=== PATIENT | female | born 1965 | race Caucasian/White ===

== ENCOUNTER 2016-08-06 20:13 | Emergency (ER) | payer MEDICARE ==
[~2016-08-06] VITALS: Ht 170.2 cm; Wt 120.0 kg
[2016-08-06 20:17] VITALS: BP 183/92; PULSE 97; RESP 16; TEMP 97.8; O2SAT 98
--- NOTE | 2016-08-06 20:54 | PD ---
HPI Chief Complaint: Psychiatric Symptoms Time Seen by Provider: 20:49 Travel History International Travel<30 days: No Contact w/Intl Traveler<30days: No Traveled to known affect area: No History of Present Illness HPI 50-year-old black female presents to emergency department requesting psychological evaluation. She states that she had just gotten off the bus from [place]. She was relocating to [place]. She states that her plans have fallen through and she has nowhere to go. She is currently homeless. She states that she has a history of mental illness and medical problems and would like to be admitted to the hospital for a few days. She states that this will help her get her mind straight and then she would like to be transferred to a [facility] for a place to stay. She states that she is disabled and only gets approximately thousand dollars a month. She has spent her money traveling. She has nowhere to go. She states that she has had thoughts of harming people although she has no current plan. She does not have anyone in particular that she wants to harm. No suicidal ideation. Patient states that she has been off her medications now for several weeks. She would like to get back on them. She has no friends or family in the area. PFSH Past Medical History Narrative Medical Schizoaffective disorder, bipolar, PTSD, hypertension, diabetes Tetanus Vaccination: < 5 Years ?: Unknown Past Surgical History Surgical History: No Previous Surgery Social History Alcohol Use: Yes Tobacco Use: Yes Substance Use: Yes Allergies-Medications (Allergen,Severity, Reaction): Coded Allergies: No Known Allergies (Unverified , 08/06/16) Reported Meds & Prescriptions Reported Meds & Active Scripts Active Reported Zyprexa (Olanzapine) 5 Mg Tab 5 Mg PO DAILY Depakote ER (Divalproex Sodium) 500 Mg Jocy 500 Mg PO DAILY Ativan (Lorazepam) 1 Mg Tab 1 Mg PO DAILY PRN Review of Systems Except as stated in HPI: all other systems reviewed are Neg Psychiatric: Positive: Substance Abuse, Homicidal Ideation, No: Anxiety, Depression, Suicidal Ideations, Disorder of Thought, Mood Disorder Physical Exam Narrative GENERAL: Well-nourished, well-developed patient. SKIN: Warm and dry. HEAD: Normocephalic and atraumatic. EYES: No scleral icterus. No injection or drainage. ENT: No nasal drainage noted. Mucous membranes pink. Airway patent. NECK: Supple, trachea midline. Moves head freely without obvious discomfort. CARDIOVASCULAR: Regular rate and rhythm without murmurs, gallops, or rubs. RESPIRATORY: Breath sounds equal bilaterally. No accessory muscle use. GASTROINTESTINAL: Abdomen soft, non-tender, nondistended. EXTREMITIES: No cyanosis or edema. BACK: Nontender without obvious deformity. No CVA tenderness. NEURO: Patient is alert and oriented. no sensorimotor deficits. Nonfocal. Normal speech. PSYCH: No delusions. No auditory or visual hallucinations. Data Data Last Documented VS Vital Signs Date Time Temp Pulse Resp B/P Pulse Ox O2 Delivery O2 Flow Rate FiO2 08/06/16 20:17 97.8 97 16 183/92 98 Room Air Orders Complete Blood Count With Diff (08/06/16 20:39) Comprehensive Metabolic Panel (08/06/16 20:39) Ed Urine Pregnancytest Poc (08/06/16 20:39) Psych Screen (08/06/16 20:39) Drug Screen, Random Urine (08/06/16 20:39) Alcohol (Ethanol) (08/06/16 20:39) Salicylates (Aspirin) (08/06/16 20:39) Tylenol (Acetaminophen) (08/06/16 20:39) Clonidine (Catapres) (08/06/16 21:30) Diet Regular Basic (08/07/16 Breakfast) Labs Laboratory Tests Test 08/06/16 08/06/16 20:50 22:36 White Blood Count 9.6 TH/MM3 Red Blood Count 4.71 MIL/MM3 Hemoglobin 12.1 GM/DL Hematocrit 37.8 % Mean Corpuscular Volume 80.3 FL Mean Corpuscular Hemoglobin 25.8 PG Mean Corpuscular Hemoglobin 32.1 % Concent Red Cell Distribution Width 14.6 % Platelet Count 303 TH/MM3 Mean Platelet Volume 8.0 FL Neutrophils (%) (Auto) 70.3 % Lymphocytes (%) (Auto) 21.2 % Monocytes (%) (Auto) 7.6 % Eosinophils (%) (Auto) 0.2 % Basophils (%) (Auto) 0.7 % Neutrophils # (Auto) 6.8 TH/MM3 Lymphocytes # (Auto) 2.0 TH/MM3 Monocytes # (Auto) 0.7 TH/MM3 Eosinophils # (Auto) 0.0 TH/MM3 Basophils # (Auto) 0.1 TH/MM3 CBC Comment DIFF FINAL Differential Comment Sodium Level 139 MEQ/L Potassium Level 4.0 MEQ/L Chloride Level 105 MEQ/L Carbon Dioxide Level 26.8 MEQ/L Anion Gap 7 MEQ/L Blood Urea Nitrogen 8 MG/DL Creatinine 0.94 MG/DL Estimat Glomerular Filtration 63 ML/MIN Rate Random Glucose 137 MG/DL Calcium Level 8.4 MG/DL Total Bilirubin 0.2 MG/DL Aspartate Amino Transf 14 U/L (AST/SGOT) Alanine Aminotransferase 22 U/L (ALT/SGPT) Alkaline Phosphatase 73 U/L Total Protein 6.9 GM/DL Albumin 3.3 GM/DL Salicylates Level LESS THAN 1.7 MG/DL Acetaminophen Level LESS THAN 2.0 MCG/ML Ethyl Alcohol Level LESS THAN 3 MG/DL Urine Opiates Screen NEG Urine Barbiturates Screen NEG Urine Amphetamines Screen NEG Urine Benzodiazepines Screen NEG Urine Cocaine Screen NEG Urine Cannabinoids Screen NEG MDM Medical Decision Making Medical Screen Exam Complete: Yes Emergency Medical Condition: Yes Medical Record Reviewed: Yes Interpretation(s) Laboratory Tests Test 08/06/16 08/06/16 20:50 22:36 White Blood Count 9.6 TH/MM3 Red Blood Count 4.71 MIL/MM3 Hemoglobin 12.1 GM/DL Hematocrit 37.8 % Mean Corpuscular Volume 80.3 FL Mean Corpuscular Hemoglobin 25.8 PG Mean Corpuscular Hemoglobin 32.1 % Concent Red Cell Distribution Width 14.6 % Platelet Count 303 TH/MM3 Mean Platelet Volume 8.0 FL Neutrophils (%) (Auto) 70.3 % Lymphocytes (%) (Auto) 21.2 % Monocytes (%) (Auto) 7.6 % Eosinophils (%) (Auto) 0.2 % Basophils (%) (Auto) 0.7 % Neutrophils # (Auto) 6.8 TH/MM3 Lymphocytes # (Auto) 2.0 TH/MM3 Monocytes # (Auto) 0.7 TH/MM3 Eosinophils # (Auto) 0.0 TH/MM3 Basophils # (Auto) 0.1 TH/MM3 CBC Comment DIFF FINAL Differential Comment Sodium Level 139 MEQ/L Potassium Level 4.0 MEQ/L Chloride Level 105 MEQ/L Carbon Dioxide Level 26.8 MEQ/L Anion Gap 7 MEQ/L Blood Urea Nitrogen 8 MG/DL Creatinine 0.94 MG/DL Estimat Glomerular Filtration 63 ML/MIN Rate Random Glucose 137 MG/DL Calcium Level 8.4 MG/DL Total Bilirubin 0.2 MG/DL Aspartate Amino Transf 14 U/L (AST/SGOT) Alanine Aminotransferase 22 U/L (ALT/SGPT) Alkaline Phosphatase 73 U/L Total Protein 6.9 GM/DL Albumin 3.3 GM/DL Salicylates Level LESS THAN 1.7 MG/DL Acetaminophen Level LESS THAN 2.0 MCG/ML Ethyl Alcohol Level LESS THAN 3 MG/DL Urine Opiates Screen NEG Urine Barbiturates Screen NEG Urine Amphetamines Screen NEG Urine Benzodiazepines Screen NEG Urine Cocaine Screen NEG Urine Cannabinoids Screen NEG Differential Diagnosis MDM: High Differential diagnoses: Schizophrenia, schizoaffective disorder, bipolar, anxiety, depression, adjustment reaction, mood disorder NOS, ODD, depressive disorder NOS, dementia, dementia with agitation, psychosis NOS, substance induced mood disorder, intermittent explosive disorder, Asperger syndrome, infection,electrolyte abnormality, malingering. Narrative Course Mental health screening discussed with the patient. Psychiatric screen ordered. I suspect that this is more malingering in attempts to obtain a domicile. The patient is given 0.2 mg of clonidine by mouth for hypertension. Bipolar, medical clearance Diagnosis Primary Impression: bipolar Additional Impression: Medical clearance for psychiatric admission Condition: Stable Ant Wayne Aug 06, 2016 20:54
[2016-08-06] MEDS ORDERED: ZYPR5TAB PO (20:55)
[2016-08-06] MEDS ORDERED: LORA-474 PO (20:55)
[2016-08-06] MEDS ORDERED: DEPA500T3 PO (20:55)
[2016-08-06 21:20] LABS: AUTOMATED NEUTROPHIL # 6.8 TH/MM3 (1.8-7.7); BASOPHIL # 0.1 TH/MM3 (0-0.2); BASOPHIL % 0.7 % (0.0-2.0); EOSINOPHIL % 0.2 % (0.0-4.0); HEMATOCRIT 37.8 % (35.0-46.0); HEMO FLAGS DIFF FINAL; LYMPH % 21.2 % (9.0-44.0); MEAN CELL VOLUME 80.3 FL (80.0-100.0); MEAN CORPUSCULAR HEMOGLOBIN 25.8 PG (27.0-34.0); MEAN CORPUSCULAR HGB CONC 32.1 % (32.0-36.0); MONO % 7.6 % (0.0-8.0); NEUT % 70.3 % (16.0-70.0); PLATELET COUNT 303 TH/MM3 (150-450); RED BLOOD COUNT 4.71 MIL/MM3 (4.00-5.30); RED CELL DISTRIBUTION WIDTH 14.6 % (11.6-17.2); WHITE BLOOD COUNT 9.6 TH/MM3 (4.0-11.0)
[2016-08-06] MEDS ORDERED: cloNIDine HCL 0.2 MG TAB PO ONE (21:30)
[2016-08-06 21:44] LABS: ANION GAP 7 MEQ/L (5-15)
[2016-08-06 22:11] LABS: ACETAMINOPHEN LESS THAN 2.0 MCG/ML (10.0-30.0); ALKALINE PHOSPHATASE 73 U/L (45-117); ALT (GPT) 22 U/L (10-53); AST (GOT) 14 U/L (15-37); BICARBONATE 26.8 MEQ/L (21.0-32.0); BLOOD UREA NITROGEN 8 MG/DL (7-18); CHLORIDE 105 MEQ/L (98-107); GLOMERULAR FILTRATION RATE 63 ML/MIN (>89); SODIUM (NA) 139 MEQ/L (136-145); TOTAL BILIRUBIN ADULT 0.2 MG/DL (0.2-1.0)
[2016-08-06 23:13] LABS: AMPHETAMINE, URINE NEG (NEG); BARBITURATES, URINE NEG (NEG); COCAINE, URINE NEG (NEG)
[2016-08-07 02:15] VITALS: BP 113/58; PULSE 63; RESP 16; O2SAT 97
== END 2016-08-07 10:31 | disposition home or self-care (01) ==
LOC: NEPD 20:13 → NEPJ 08-07 10:31
DX: F31.9 Bipolar disorder, unspecified (principal); I10 Essential (primary) hypertension; E11.9 Type 2 diabetes mellitus without complications; Z72.0 Tobacco use
CPT/HCPCS: 80053; 80307; 84703; 85025; 99284

== ENCOUNTER 2016-08-08 13:42 | Inpatient (IN) | payer MEDICARE ==
[~2016-08-08] VITALS: Ht 170.2 cm; Wt 119.1 kg
[~2016-08-08 13:42] MED LIST: DEPA500T3 PO; LORA-474 PO; ZYPR5TAB PO
[2016-08-08 13:59] VITALS: BP 142/69; PULSE 97; RESP 18; TEMP 99.2; O2SAT 96
--- NOTE | 2016-08-08 14:09 | PD ---
HPI Chief Complaint: General Weakness Time Seen by Provider: 13:55 Travel History International Travel<30 days: No Contact w/Intl Traveler<30days: No Traveled to known affect area: No History of Present Illness HPI 50-year-old female requesting psychiatric evaluation. Patient was seen in emergency room 2 days ago. Patient was requesting psych also on evaluation at that time. Patient states that she just came here from [place]. Patient states that she does not have a place to stay in [facility]. Patient states that she has history of mental illness and requesting admission to the psychiatric wolf. Patient states that she history of schizoaffective disorder, bipolar disorder, PTSD, hypertension and diabetes. Patient denies any alcohol or drug abuse. Patient was medically clear and was seen by psychiatric team yesterday. Patient was discharged with advised to follow with [facility]. Patient elected to come back to the ED today. Patient states that she has thoughts of hurting other people. PFSH Past Medical History Anxiety: Yes Immunizations Current: Yes Social History Alcohol Use: Yes Tobacco Use: Yes Substance Use: Yes Allergies-Medications (Allergen,Severity, Reaction): Coded Allergies: No Known Allergies (Unverified , 08/08/16) Reported Meds & Prescriptions Reported Meds & Active Scripts Active Reported Zyprexa (Olanzapine) 5 Mg Tab 5 Mg PO DAILY Depakote ER (Divalproex Sodium) 500 Mg Jocy 500 Mg PO DAILY Ativan (Lorazepam) 1 Mg Tab 1 Mg PO DAILY PRN Review of Systems General / Constitutional: No: Fever Eyes: No: Visual changes HENT: No: Headaches Cardiovascular: No: Chest Pain or Discomfort Respiratory: No: Shortness of Breath Gastrointestinal: No: Abdominal Pain Genitourinary: No: Dysuria Musculoskeletal: No: Pain Skin: No Rash Neurologic: No: Weakness Psychiatric: No: Depression Endocrine: No: Polydipsia Hematologic/Lymphatic: No: Easy Bruising Physical Exam Narrative GENERAL: Well-nourished, well-developed patient. SKIN: Focused skin assessment warm/dry. HEAD: Normocephalic. EYES: No scleral icterus. No injection or drainage. NECK: Supple, trachea midline. No JVD or lymphadenopathy. CARDIOVASCULAR: Regular rate and rhythm without murmurs, gallops, or rubs. RESPIRATORY: Breath sounds equal bilaterally. No accessory muscle use. GASTROINTESTINAL: Abdomen soft, non-tender, nondistended. MUSCULOSKELETAL: No cyanosis, or edema. BACK: Nontender without obvious deformity. No CVA tenderness. Neurologic exam normal. Data Data Last Documented VS Vital Signs Date Time Temp Pulse Resp B/P Pulse Ox O2 Delivery O2 Flow Rate FiO2 08/08/16 13:59 99.2 97 18 142/69 96 MDM Medical Decision Making Medical Screen Exam Complete: Yes Emergency Medical Condition: Yes Differential Diagnosis Differential diagnosis including schizoaffective disorder, bipolar disorder, PTSD, malingering, adjustment disorder. Narrative Course 50-year-old female requesting psychiatric evaluation. Patient states that she had thoughts of hurting other people. Patient has history of schizoaffective disorder, bipolar disorder, PTSD, hypertension and diabetes. Blood test done 2 days ago and no need to be repeated today. Patient will be waiting for psychiatric screener. Tk Saldaña MD Aug 08, 2016 14:09
--- NOTE | 2016-08-08 17:37 | PD ---
History of Present Illness Chief Complaint: General Weakness Time Seen by Provider: 15:15 Travel History International Travel<30 Days: No Contact w/Intl Traveler<30days: No Known affected area: No Legal Status Legal Status: Voluntary History of Present Illness: History of Present Illness HPI 50-year-old female with reported history of schizoaffective disorder, bipolar disorder, PTSD who presents to the hospital on a voluntary basis requesting a psychiatric evaluation. Patient was seen in emergency room 2 days ago and was also requesting a psychiatric evaluation. Patient states that she just came here from [place] on a bus and that she has ran out of money, is homeless, has not had her medication. is experiencing " hardship, agitation, having difficulty dealing with certain situations and responding with violent thoughts towards other people. S" She tells me these thoughts frighten her and she is asking God to help her not act out in a violent way. She reports she had thoughts of setting someone on the street on fire. She has been off her psychiatric medication for several weeks and that her medications include Zyprexa, Depakote and Ativan. The patient is alert, oriented female with fair hygiene. Her speech is fast and tangential. She is religiously preoccupied. Does not appear internally preoccupied. She denies suicidal ideation but admits to thoughts of harming people on the street with violent acts such as setting them on fire. She has not been sleeping since she has been on the streets. This is the patient's second visit to the ed. She denies any substance use although does report a hx of substance abuse in the past. I have endeavored to contact her contact center professional , Damari Maravilla at [phone] but unable to leave a message. PFS Past Medical History Anxiety: Yes Diabetes: Yes Patient Takes Glucophage: No Hypertension: Yes Musculoskeletal: Yes (DJD) Immunizations Current: Yes ?: Unknown LMP: end of june : 3 : 3 Psychiatric History Psychiatric History Hx Psychiatric Treatment: Patient has years of history of mental illness with several hospitalizations reports anxiety, depression, and occasional thoughts of homicidal ideation. History of Inpatient Treatment: Yes (Last hosp in April of 2016. ) Social History Hx Alcohol Use: Yes (rare ) Hx Tobacco Use: Yes (1 pack a day) Hx Substance Use: No Substance Use Type: Alcohol, Crack, Garth Dust-PCP, Prescription Medications, Heroin Hx of Substance Use Treatment: No Family Psychiatric History Unknown. Allergies-Medications (Allergen,Severity, Reaction): Coded Allergies: No Known Allergies (Unverified , 08/08/16) Reported Meds & Prescriptions Reported Meds & Active Scripts Active Reported Zyprexa (Olanzapine) 5 Mg Tab 5 Mg PO DAILY Depakote ER (Divalproex Sodium) 500 Mg Jocy 500 Mg PO DAILY Ativan (Lorazepam) 1 Mg Tab 1 Mg PO DAILY PRN Review of Systems Except as stated in HPI: all other systems reviewed are Neg Exam Alert: Yes [place]: Person (ox4) Mood: Calm Affect: Restricted Speech: Clear, Fast, Flight of Ideas Eye Contact: Indirect Memory Intact: Comment (no gross abnormality) Hallucinations: Other (negative ) Suicidal: Ideation (deneis any) Homicidal: Ideation (of setting people on the street on fire. ) Insight/Judgement Poor. Poor MDM Medical Decision Making Medical Record Reviewed: Yes Assessment/Plan 50 year old female with reported hx of schizoaffective disorder, bipolar type, PTSD who impulsively took a bus from [place] to [facility]. Patient at this time reporting that she has been out of her medication and is reporting increase in aggressive impulses with homicidal ideation. Since this patient is unknown to us, she ahs a reported psychiatric history and has been off her medication with no resources to get back on them .she will be placed under a BA in order to get her to [facility] for stabilization and continued treatment. Orders Psych Screen (08/08/16 14:02) Results Vital Signs Date Time Temp Pulse Resp B/P Pulse Ox O2 Delivery O2 Flow Rate FiO2 08/08/16 13:59 99.2 97 18 142/69 96 Diagnosis Primary Impression: Schizoaffective disorder, bipolar type Departure Forms: Tests/Procedures Patient Instructions: General Instructions Xena Guillen Aug 08, 2016 17:37
[2016-08-08] MEDS ORDERED: OLANZapine 10 MG TAB PO ONE (17:45)
[2016-08-08] MEDS: DIVALPROEX SODIUM E.R. 500 MG TAB PO SCH (18:36)
[2016-08-08 19:03] VITALS: BP 145/62; PULSE 99; RESP 18; O2SAT 97
[2016-08-09] VITALS: BP 110/55; PULSE 62; RESP 18; TEMP 97.6; O2SAT 95
[2016-08-09 07:12] VITALS: BP 125/60; PULSE 70; RESP 18; TEMP 97.6; O2SAT 95
[2016-08-09] MEDS: DIVALPROEX SODIUM E.R. 500 MG TAB PO SCH ×2 (08:55→08:56)
[2016-08-09 11:42] VITALS: BP 122/68; PULSE 68; RESP 18; O2SAT 96
[2016-08-09 15:28] VITALS: BP 136/65; PULSE 84; RESP 18; O2SAT 97
[2016-08-09] MEDS ORDERED: LORazepam 0.5 MG TAB PO PRN (16:45)
[2016-08-09] MEDS ORDERED: LORazepam 2 MG/ML VIAL IM PRN ×2 (16:45)
[2016-08-09] MEDS ORDERED: ALUMINUM/MAGNESIUM/SIMETH 30 ML CUP PO PRN (16:45)
[2016-08-09] MEDS ORDERED: ACETAMINOPHEN 325 MG TAB PO PRN (16:45)
[2016-08-09] MEDS ORDERED: LORazepam 1 MG TAB PO PRN (16:45)
[2016-08-09] MEDS ORDERED: MAGNESIUM HYDROXIDE SUSP 30 ML CUP PO PRN (16:45)
[2016-08-09] MEDS: OLANZapine 5 MG TAB PO SCH (16:45)
[2016-08-09 17:52] VITALS: BP 165/94; PULSE 78; RESP 18; TEMP 97.5; O2SAT 96
[2016-08-10 05:45] VITALS: BP 124/64; PULSE 58; RESP 17; TEMP 96.7
[2016-08-10] MEDS: REMOVE OLD PATCH T-DERMAL SCH (08:26)
[2016-08-10] MEDS: NICOTINE 21 MG/24 HR PATCH T-DERMAL SCH (08:26)
[2016-08-10] MEDS: OLANZapine 5 MG TAB PO SCH (08:26)
[2016-08-10] MEDS: DIVALPROEX SODIUM E.R. 500 MG TAB PO SCH (08:26)
[2016-08-10] MEDS ORDERED: MAGNESIUM HYDROXIDE SUSP 30 ML CUP PO PRN (10:15)
[2016-08-10] MEDS ORDERED: ALUMINUM/MAGNESIUM/SIMETH 30 ML CUP PO PRN (10:15)
[2016-08-10] MEDS ORDERED: NICOTINE 21 MG/24 HR PATCH T-DERMAL SCH (10:15)
[2016-08-10] MEDS ORDERED: ACETAMINOPHEN 325 MG TAB PO PRN (10:15)
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
--- NOTE | 2016-08-10 14:13 | PD.CONS ---
[facility] By Amanuel Reason for Consult Medical management Primary Care Physician Unknown Diagnoses: History of Present Illness Written by JOSE Oliveira acting as scribe for Dr. Malik] on 08/10/16 at 12 :25. 50 y/o female with a history of bipolar, schizoaffective disorder and questionable history of DM, HTN, and degenerative joint disease came to the hospital because she felt she was going to harm others. [facility] was consulted for medical management. She is homeless and came to [place] one week ago from [place]. She has not taken any medications for DM for over a year, but states she use to be on insulin. She also has not taken any medications for HTN since 2009, but states she was on metoprolol. She does take Depakote for bipolar and says she takes it every other day because it makes her sleepy. She does complain of bilateral shoulder discomfort and is requesting a muscle relaxer. She does complain of UTI chronic for the last 2-3 months with associated abdominal discomfort with urination, but denies any dysuria. She also denies any chest pain, sob, fever or chills. Review of Systems Constitutional: DENIES: Fever, Chills Respiratory: DENIES: Cough, Shortness of breath Cardiovascular: DENIES: Chest pain, Lower Extremity Edema Gastrointestinal: COMPLAINS OF: Abdominal pain, DENIES: Diarrhea, Nausea, Vomiting Genitourinary: DENIES: Dysuria Musculoskeletal: COMPLAINS OF: Joint pain, DENIES: Back pain, Neck pain Neurologic: DENIES: Headache, Localized weakness Past Family Social History Allergies: Coded Allergies: No Known Allergies (Unverified , 08/08/16) Past Medical History bipolar schizoaffective disorder questionable history of DM, HTN, and degenerative joint disease Past Surgical History Patient denies any surgical history Reported Medications Reported Meds & Active Scripts Active Reported Zyprexa (Olanzapine) 5 Mg Tab 5 Mg PO DAILY Depakote ER (Divalproex Sodium) 500 Mg Jocy 500 Mg PO DAILY Ativan (Lorazepam) 1 Mg Tab 1 Mg PO DAILY PRN Active Ordered Medications Current Medications Medications (Trade) Dose Ordered Sig/Michael Route Start Time Stop Time Status Last Admin (Depakote Er) 500 mg DAILY PO 08/08/16 17:45 08/10/16 08:26 (Tylenol) 650 mg Q4H PRN PO 08/09/16 16:45 (Milk Of Magnesia Liq) 30 ml DAILY PRN PO 08/09/16 16:45 (Mag-Al Plus Susp Liq) 30 ml Q6H PRN PO 08/09/16 16:45 (Habitrol 21 Mg Patch.24 Hr) 1 patch DAILY T-DERMAL 08/10/16 09:00 08/10/16 08:26 (ZyPREXA) 5 mg DAILY PO 08/09/16 16:45 08/10/16 08:26 Miscellaneous Information 1 DAILY T-DERMAL 08/10/16 09:00 08/10/16 08:26 (Benadryl) 50 mg HS PRN PO 08/10/16 10:15 (Atarax) 50 mg Q6H PRN PO 08/10/16 10:15 Family History Patient is adopted Social History Tobacco use: 1 PPD Alcohol use: Denies Illicit drug use: Denies Physical Exam Vital Signs Vital Signs Date Time Temp Pulse Resp B/P Pulse Ox O2 Delivery O2 Flow Rate FiO2 08/10/16 05:45 96.7 58 17 124/64 08/09/16 17:52 97.5 78 18 165/94 96 08/09/16 15:28 84 18 136/65 97 Room Air Physical Exam GENERAL: This is a well-nourished, well-developed patient, in no apparent distress. SKIN: No rashes, ecchymoses or lesions. Cool and dry. HEAD: Atraumatic. Normocephalic. No temporal or scalp tenderness. EYES: Pupils equal round and reactive. Extraocular motions intact NECK: Trachea midline. No JVD or lymphadenopathy. CARDIOVASCULAR: Regular rate and rhythm without murmurs, gallops, or rubs. RESPIRATORY: Clear to auscultation. Breath sounds equal bilaterally. No wheezes , rales, or rhonchi. GASTROINTESTINAL: Abdomen soft, non-tender, nondistended. . MUSCULOSKELETAL: No edema. Sb shouder tenderness. No calf tenderness. NEUROLOGICAL: Awake and alert. Motor and sensory grossly within normal limits. Normal speech. Assessment and Plan Problem List: (1) Schizoaffective disorder, bipolar type ICD Code: F25.0 Status: Acute (2) HTN (hypertension) ICD Code: I10 Status: Acute (3) DM (diabetes mellitus) ICD Code: E11.9 Status: Acute (4) Degenerative joint disease ICD Code: M19.90 Status: Chronic Assessment and Plan 50 y/o female with a history of bipolar, schizoaffective disorder and questionable history of DM, HTN, and degenerative joint disease came to the hospital because she felt she was going to harm others. [facility] was consulted for medical management. Schizoaffective disorder -Managed by psych HTN, questionable chronic, not on any medications, stable. Currently normotensive -Cont to monitor Vitals -Clonidine PRN DM, questionable, chronic, 1 year ago on insulin -A1C pending -Accu checks with SSI UTI: Patient reports a history of recurrent UTI. Currently asymptomatic - UA pending. DVT prophylaxis: Low risk. encourage ambulation This note was transcribed by scribe [Diann Escoto]. I, Dr. Yen Sanchez personally performed the history, physical exam, and medical decision making; and confirmed the accuracy of the information in the transcribed note. Authenticated by Dr. Yen Sanchez on 08/10/16 at 1230. Discussed Condition With Patient Problem Qualifiers (1) Degenerative joint disease: Qualified Code: M19.011 - Osteoarthritis of both shoulders, unspecified osteoarthritis type Diann Escoto Aug 10, 2016 14:13 Yen Sanchez MD Aug 10, 2016 18:27
[2016-08-10] MEDS ORDERED: PILL SPLITTER OTHER PRN (14:15)
[2016-08-10] MEDS ORDERED: CYCLOBENZAPRINE HCL 10 MG TAB PO PRN (14:15)
[2016-08-10 16:50] LABS: ANION GAP 9 MEQ/L (5-15); BICARBONATE 25.5 MEQ/L (21.0-32.0); BLOOD UREA NITROGEN 13 MG/DL (7-18); CHLORIDE 100 MEQ/L (98-107); GLOMERULAR FILTRATION RATE 78 ML/MIN (>89); POTASSIUM 3.8 MEQ/L (3.5-5.1); SODIUM (NA) 134 MEQ/L (136-145)
[2016-08-10 16:54] LABS: HDL CHOLESTEROL 39.6 MG/DL (40.0-60.0); LDL CHOLESTEROL 64 MG/DL (0-99)
[2016-08-10 18:24] VITALS: BP 160/104; PULSE 75; RESP 18; TEMP 97.4; O2SAT 95
[2016-08-10] MEDS: diphenhydrAMINE HCL 50 MG CAP PO PRN (20:07)
[2016-08-10 22:22] LABS: HEMOGLOBIN A1a 1.2 %; HEMOGLOBIN A1b 1.8 %; HEMOGLOBIN Ao 83.1 %; HEMOGLOBIN LA1C 2.2 %; HEMOGLOBIN P3 3.9 %
[2016-08-11 05:59] VITALS: BP 150/80; PULSE 64; RESP 16; TEMP 96.9; O2SAT 98
[2016-08-11] MEDS: NICOTINE 21 MG/24 HR PATCH T-DERMAL SCH ×2 (09:00→09:21)
[2016-08-11] MEDS: REMOVE OLD PATCH T-DERMAL SCH (09:00)
[2016-08-11] MEDS: DIVALPROEX SODIUM E.R. 500 MG TAB PO SCH (09:20)
[2016-08-11] MEDS: OLANZapine 5 MG TAB PO SCH (09:21)
[2016-08-11 11:25] LABS: ANION GAP 11 MEQ/L (5-15); AST (GOT) 9 U/L (15-37); BICARBONATE 23.8 MEQ/L (21.0-32.0); BLOOD UREA NITROGEN 10 MG/DL (7-18); CHLORIDE 102 MEQ/L (98-107); GLOMERULAR FILTRATION RATE 71 ML/MIN (>89); POTASSIUM 4.2 MEQ/L (3.5-5.1); SODIUM (NA) 137 MEQ/L (136-145)
[2016-08-11 11:29] LABS: HDL CHOLESTEROL 44.9 MG/DL (40.0-60.0); LDL CHOLESTEROL 58 MG/DL (0-99)
[2016-08-11 11:37] LABS: ALKALINE PHOSPHATASE 69 U/L (45-117); ALT (GPT) 17 U/L (10-53); FREE T4 0.98 NG/DL (0.76-1.46); TOTAL BILIRUBIN ADULT 0.2 MG/DL (0.2-1.0)
[2016-08-11] MEDS: hydrOXYzine HCL 50 MG TAB PO PRN (12:44)
[2016-08-11] MEDS ORDERED: METF500T PO (13:53)
[2016-08-11] MEDS ORDERED: AMLO5 PO (13:53)
--- NOTE | 2016-08-11 13:53 | HHI.PR ---
Subjective Remarks Patient seen in her room. She expressed many grandiose ideas about her expectations for when she is discharge from the hospital. She states that she is used to being discharged to either a fdc or a halfway facility whenever she was admitted on the psychiatric unit in [place]. We discussed her diabetes and the need to be on metformin. She reports that she does not like metformin because she felt jittery when she took it. However she does not know what dose she was taking. Objective Vitals Vital Signs Date Time Temp Pulse Resp B/P Pulse Ox O2 Delivery O2 Flow Rate FiO2 08/11/16 05:59 96.9 64 16 150/80 98 08/10/16 18:24 97.4 75 18 160/104 95 Result Diagram: 08/11/16 0958 Objective Remarks GENERAL: This is a well-nourished, well-developed patient, in no apparent distress. CARDIOVASCULAR: Normal rate and regular rhythm without murmurs, gallops, or rubs. RESPIRATORY: Good respiratory efforts. Breath sounds equal and clear to auscultation bilaterally. GASTROINTESTINAL: Abdomen soft, non-tender, non-distended. Normal active bowel sounds MUSCULOSKELETAL: Extremities without cyanosis, or edema. NEURO: Alert & Oriented x4 to person, place, time, situation. Moves all ext x4 PSYCH: Some grandiosity behavior. Irritable with some answers and at times appear manipulative. A/P Problem List: (1) Schizoaffective disorder, bipolar type ICD Code: F25.0 Status: Acute (2) HTN (hypertension) ICD Code: I10 Status: Acute (3) DM (diabetes mellitus) ICD Code: E11.9 Status: Acute (4) Degenerative joint disease ICD Code: M19.90 Status: Chronic Assessment and Plan 50 y/o female with a history of bipolar, schizoaffective disorder and questionable history of DM, HTN, and degenerative joint disease came to the hospital because she felt she was going to harm others. [facility] was consulted for medical management. Schizoaffective disorder -Managed by psych - Patient seems to have unrealistic expectations regarding her discharge. She is requesting to be discharged to a nursing facility. She reports whenever she was admitted to the psychiatric unit in [place], she would be discharged to a halfway facility or a fdc. Discussed with the patient that available local resources. I advised her to direct some of these questions to the shoe parts caser. HTN, BP labile -Start low dose Amlodipine. -Cont to monitor Vitals -Clonidine PRN DM - A1C pending 7.1 - Start Metformin, low dose - Accu checks with SSI UTI: Patient reports a history of recurrent UTI. Currently asymptomatic - UA pending. Will follow up. DVT prophylaxis: Low risk. encourage ambulation Patient is medically stable. Will sign off. Please call with questions. Problem Qualifiers (1) Degenerative joint disease: Qualified Code: M19.011 - Osteoarthritis of both shoulders, unspecified osteoarthritis type Yen Sanchez MD Aug 11, 2016 13:53
[2016-08-11 14:00] LABS: BACTERIA, URINE MANY /hpf; BLOOD, URINE SMALL (NEG); COMMENT (UR) CULTURE INDICATED; CULTURE IF INDICATED CULTURE INDICATED; GLUCOSE,URINE NEG (NEG); KETONE, URINE NEG (NEG); MUCUS URINE FEW /lpf (OCC); NITRITE,URINE NEG (NEG); PH, URINE 6.5 (5.0-8.5); SQUAMOUS EPITHELIAL CELL URINE 41 /hpf (0-5); URINE COLOR YELLOW (YELLW/STRAW)
[2016-08-11] MEDS ORDERED: amLODIPine BESYLATE 5 MG TAB PO ONE (14:00)
--- NOTE | 2016-08-11 14:08 | HHI.PYPN ---
Subjective Remarks Patient seen in her room with nurse Virgie, patient continues somewhat vigilant and also somewhat entitled when discussing possible housing alternatives we did discuss when limitations of our community. Which included ALS versus [facility]. Patient denied suicidality homicidality also denies voices visions. She is compliant with her medications. For now continue treatment Review of Systems Except as stated in HPI: all other systems reviewed are Neg Objective Alert: Yes [place]: Person (ox4) Mood: Calm Affect: Restricted Memory Intact: Comment (no gross abnormality) Hallucinations: Other (negative ) Delusions: Yes Delusion Type: Paranoid Suicidal: Ideation (deneis any) Homicidal: Ideation (of setting people on the street on fire. ) Insight/Judgment Poor Labs Test 08/10/16 08/11/16 15:32 09:58 Sodium Level 134 MEQ/L 137 MEQ/L Potassium Level 3.8 MEQ/L 4.2 MEQ/L Chloride Level 100 MEQ/L 102 MEQ/L Carbon Dioxide Level 25.5 MEQ/L 23.8 MEQ/L Anion Gap 9 MEQ/L 11 MEQ/L Blood Urea Nitrogen 13 MG/DL 10 MG/DL Creatinine 0.78 MG/DL 0.85 MG/DL Estimat Glomerular Filtration 78 ML/MIN 71 ML/MIN Rate Random Glucose 137 MG/DL 194 MG/DL Hemoglobin A1c 7.1 % Calcium Level 7.7 MG/DL 8.3 MG/DL Triglycerides Level 103 MG/DL 103 MG/DL Cholesterol Level 124 MG/DL 123 MG/DL LDL Cholesterol 64 MG/DL 58 MG/DL HDL Cholesterol 39.6 MG/DL 44.9 MG/DL Cholesterol/HDL Ratio 3.13 RATIO 2.73 RATIO Total Bilirubin 0.2 MG/DL Aspartate Amino Transf 9 U/L (AST/SGOT) Alanine Aminotransferase 17 U/L (ALT/SGPT) Alkaline Phosphatase 69 U/L Total Protein 6.7 GM/DL Albumin 3.0 GM/DL Free Thyroxine 0.98 NG/DL Thyroid Stimulating Hormone 1.120 uIU/ML 3rd Gen Vitals/IOs Vital Signs Date Time Temp Pulse Resp B/P Pulse Ox O2 Delivery O2 Flow Rate FiO2 08/11/16 05:59 96.9 64 16 150/80 98 08/09/16 15:28 Room Air Assessment & Plan Problem List: (1) Schizoaffective disorder, bipolar type ICD Code: F25.0 Assessment & Plan Estimated LOS: days patient remained psychotic delusional paranoid, she showing improved compliance medication. For now continue treatment Justification for Cont. Inpt. This time patient will decompensate placed in a lower level of care Discharge Planning To be determined Request HC Surrog/Guard Advoc?: No Stiven Vital MD Aug 11, 2016 14:08
[2016-08-11 16:22] LABS: HEMOGLOBIN A1a 1.3 %; HEMOGLOBIN A1b 1.8 %; HEMOGLOBIN Ao 83.2 %; HEMOGLOBIN LA1C 2.4 %; HEMOGLOBIN P3 3.8 %
[2016-08-11 16:59] VITALS: PULSE 67; RESP 18; TEMP 97.5; O2SAT 97
[2016-08-11] MEDS: metFORMIN HCL 500 MG TAB PO SCH (18:14)
[2016-08-12 05:38] VITALS: BP 123/66; PULSE 62; RESP 18; TEMP 97.6
[2016-08-12] MEDS: amLODIPine BESYLATE 5 MG TAB PO SCH (08:36)
[2016-08-12] MEDS: OLANZapine 5 MG TAB PO SCH (08:36)
[2016-08-12] MEDS: metFORMIN HCL 500 MG TAB PO SCH ×2 (08:36→17:51)
[2016-08-12] MEDS: DIVALPROEX SODIUM E.R. 500 MG TAB PO SCH ×2 (08:36→21:00)
[2016-08-12] MEDS: NICOTINE 21 MG/24 HR PATCH T-DERMAL SCH (08:37)
[2016-08-12] MEDS: REMOVE OLD PATCH T-DERMAL SCH (08:37)
--- NOTE | 2016-08-12 13:39 | HHI.PYPN ---
Subjective Remarks Patient seen in her room with floor staff, chart review, patient compliant medications. Depakote level drawn this a.m. is 38 on 500 mg daily. Will increase Depakote to 500 mg twice a day check a blood level on the . Patient laying in bed somewhat entitled and demanding especially related to placement I did share with her the realities of the [facility]'s financial aspects of that. It seems she became somewhat irritated with that reality. She has been compliant with her medications. For now continue treatment Review of Systems Except as stated in HPI: all other systems reviewed are Neg Objective Alert: Yes [place]: Person (ox4) Mood: Calm Affect: Restricted Memory Intact: Comment (no gross abnormality) Hallucinations: Other (negative ) Delusions: Yes Delusion Type: Paranoid Suicidal: Ideation (deneis any) Homicidal: Ideation (of setting people on the street on fire. ) Insight/Judgment Poor Labs Test 08/12/16 09:13 Valproic Acid (Depakene) Level 38 MCG/ML Date/Time Procedure Status Source Growth 08/11/16 13:00 Urine Culture Received Urine Clean Catch Pending Vitals/IOs Vital Signs Date Time Temp Pulse Resp B/P Pulse Ox O2 Delivery O2 Flow Rate FiO2 08/12/16 05:38 97.6 62 18 123/66 08/11/16 16:59 97 08/09/16 15:28 Room Air Assessment & Plan Problem List: (1) Schizoaffective disorder, bipolar type ICD Code: F25.0 Assessment & Plan Estimated LOS: days C medication adjustments above patient remains somewhat isolative, and entitled. For now continue treatment Justification for Cont. Inpt. At this time patient will decompensate in place to the lower level of care Discharge Planning To be determined Request HC Surrog/Guard Advoc?: No Stiven Vital MD Aug 12, 2016 13:39
[2016-08-12 17:29] VITALS: BP 139/71; PULSE 85; RESP 18; TEMP 96.9; O2SAT 96
[2016-08-12] MEDS: hydrOXYzine HCL 50 MG TAB PO PRN (17:51)
[2016-08-12] MEDS: diphenhydrAMINE HCL 50 MG CAP PO PRN (21:39)
[2016-08-13 06:10] VITALS: BP 148/75; PULSE 64; RESP 18; TEMP 98.4; O2SAT 95
[2016-08-13] MEDS: REMOVE OLD PATCH T-DERMAL SCH (09:00)
[2016-08-13] MEDS: metFORMIN HCL 500 MG TAB PO SCH ×2 (09:00→17:01)
[2016-08-13] MEDS: OLANZapine 5 MG TAB PO SCH (09:00)
[2016-08-13] MEDS: DIVALPROEX SODIUM E.R. 500 MG TAB PO SCH ×2 (09:00→20:00)
[2016-08-13] MEDS: NICOTINE 21 MG/24 HR PATCH T-DERMAL SCH (09:00)
[2016-08-13] MEDS: amLODIPine BESYLATE 5 MG TAB PO SCH (09:00)
[2016-08-13] MEDS: hydrOXYzine HCL 50 MG TAB PO PRN (13:10)
--- NOTE | 2016-08-13 16:51 | HHI.PYPN ---
Subjective Remarks Patient was seen and case discussed with nursing. Patient says she notes an improvement is not "thinking clearly." She denies auditory or visual hallucinations. Remains disheveled and mildly disorganized. Behaving well on the unit. Denies suicidal ideation intent or plan Objective Alert: Yes [place]: Person (ox4), Place Mood: Calm Affect: Blunted Memory Intact: Comment (no gross abnormality) Hallucinations: Other (negative ) Delusions: Yes Delusion Type: Paranoid (vigilance) Suicidal: Ideation (deneis any) Homicidal: Ideation (of setting people on the street on fire. ) Insight/Judgment Poor Labs Date/Time Procedure Status Source Growth 08/11/16 13:00 Urine Culture - Final Complete Urine Clean Catch 50-100,000 CFU/ML MIXED MICHEAL... Vitals/IOs Vital Signs Date Time Temp Pulse Resp B/P Pulse Ox O2 Delivery O2 Flow Rate FiO2 08/13/16 06:10 98.4 64 18 148/75 95 08/09/16 15:28 Room Air Assessment & Plan Problem List: (1) Schizoaffective disorder, bipolar type ICD Code: F25.0 Assessment & Plan Continue current treatment plan Justification for Cont. Inpt. Patient will decompensate in a less restrictive setting Request HC Surrog/Guard Advoc?: No Hugh Reeves DO Aug 13, 2016 16:51
[2016-08-13 18:46] VITALS: BP 161/78; PULSE 85; RESP 18; TEMP 98.5; O2SAT 94
[2016-08-13] MEDS: diphenhydrAMINE HCL 50 MG CAP PO PRN (20:01)
[2016-08-14 06:09] VITALS: BP 161/73; PULSE 60; RESP 18; TEMP 98; O2SAT 93
[2016-08-14] MEDS: NICOTINE 21 MG/24 HR PATCH T-DERMAL SCH (09:00)
[2016-08-14] MEDS: DIVALPROEX SODIUM E.R. 500 MG TAB PO SCH ×2 (09:00→20:28)
[2016-08-14] MEDS: amLODIPine BESYLATE 5 MG TAB PO SCH (09:00)
[2016-08-14] MEDS: REMOVE OLD PATCH T-DERMAL SCH (09:00)
[2016-08-14] MEDS: OLANZapine 5 MG TAB PO SCH (09:00)
[2016-08-14] MEDS: metFORMIN HCL 500 MG TAB PO SCH ×2 (09:00→17:04)
[2016-08-14] MEDS: hydrOXYzine HCL 50 MG TAB PO PRN (09:03)
--- NOTE | 2016-08-14 16:57 | HHI.PYPN ---
Subjective Remarks Patient was seen and case discussed with nursing. Patient remains disorganized. Chief complaint today is a headache. She is apathetic and sleeping throughout the day. Suicidal ideation is "vaguely." No intent or plan. Behaving well on the unit tolerating her medications well Objective Alert: Yes [place]: Person (ox4), Place Mood: Calm Affect: Blunted Memory Intact: Comment (no gross abnormality) Hallucinations: Other (negative ) Delusions: Yes Delusion Type: Paranoid (vigilance) Suicidal: Ideation ("vaguely") Homicidal: Ideation (of setting people on the street on fire. ) Insight/Judgment Poor Labs Date/Time Procedure Status Source Growth 08/11/16 13:00 Urine Culture - Final Complete Urine Clean Catch 50-100,000 CFU/ML MIXED MICHEAL... Vitals/IOs Vital Signs Date Time Temp Pulse Resp B/P Pulse Ox O2 Delivery O2 Flow Rate FiO2 08/14/16 06:09 98.0 60 18 161/73 93 Assessment & Plan Problem List: (1) Schizoaffective disorder, bipolar type ICD Code: F25.0 Assessment & Plan Continue current treatment plan Justification for Cont. Inpt. Patient will decompensate and less restrictive setting Request HC Surrog/Guard Advoc?: No Hugh Reeves DO Aug 14, 2016 16:57
[2016-08-15 06:11] VITALS: BP 146/71; PULSE 63; RESP 18; TEMP 98; O2SAT 95
[2016-08-15 06:20] VITALS: BP_SYST 146
[2016-08-15] MEDS: NICOTINE 21 MG/24 HR PATCH T-DERMAL SCH (09:00)
[2016-08-15] MEDS: REMOVE OLD PATCH T-DERMAL SCH (09:00)
[2016-08-15] MEDS: DIVALPROEX SODIUM E.R. 500 MG TAB PO SCH ×2 (09:17→21:10)
[2016-08-15] MEDS: amLODIPine BESYLATE 5 MG TAB PO SCH (09:17)
[2016-08-15] MEDS: metFORMIN HCL 500 MG TAB PO SCH ×2 (09:17→18:00)
[2016-08-15] MEDS: OLANZapine 5 MG TAB PO SCH (09:17)
--- NOTE | 2016-08-15 12:01 | HHI.PYPN ---
Subjective Remarks Patient seen in [place] of floor staff and medical student Oumar, chart review, patient compliant medications. Patient continues confused somewhat disorganized. Though today somewhat reluctantly denying suicidality homicidality she is vague about voices. There is still some vague entitlement when discussing possible placement issues. Will DC a.m. Zyprexa, start Zyprexa 10 mg at at bedtime Depakote blood level this a.m. came back at 73 Review of Systems Except as stated in HPI: all other systems reviewed are Neg Objective Alert: Yes [place]: Person (ox4), Place Mood: Calm Affect: Blunted Memory Intact: Comment (no gross abnormality) Hallucinations: Other (negative ) Delusions: Yes Delusion Type: Paranoid (vigilance) Suicidal: Ideation ("vaguely") Homicidal: Ideation (of setting people on the street on fire. ) Insight/Judgment Poor Labs Test 08/15/16 06:55 Valproic Acid (Depakene) Level 73 MCG/ML Date/Time Procedure Status Source Growth 08/11/16 13:00 Urine Culture - Final Complete Urine Clean Catch 50-100,000 CFU/ML MIXED MICHEAL... Vitals/IOs Vital Signs Date Time Temp Pulse Resp B/P Pulse Ox O2 Delivery O2 Flow Rate FiO2 08/15/16 06:20 146/ 08/15/16 06:11 98.0 63 18 95 Assessment & Plan Problem List: (1) Schizoaffective disorder, bipolar type ICD Code: F25.0 Assessment & Plan Estimated LOS: days patient remains vigilant somewhat paranoid, compliant medications. For now continue treatment Justification for Cont. Inpt. At this time patient will decompensate if placed in a lower level of care Discharge Planning To be determined Request HC Surrog/Guard Advoc?: No Stiven Vital MD Aug 15, 2016 12:01
[2016-08-15 18:00] VITALS: BP 128/71; PULSE 81; RESP 17; TEMP 98; O2SAT 98
[2016-08-15] MEDS ORDERED: OLANZapine 10 MG TAB PO SCH (21:00)
[2016-08-15] MEDS: diphenhydrAMINE HCL 50 MG CAP PO PRN (21:10)
[2016-08-15] MEDS: hydrOXYzine HCL 50 MG TAB PO PRN (23:24)
[2016-08-16] MEDS: ZOLPIDEM TARTRATE 5 MG TAB PO ONE ×2 (00:38→00:41)
[2016-08-16 06:20] VITALS: BP 129/62; PULSE 62; RESP 18; TEMP 97.9; O2SAT 96
[2016-08-16] MEDS: REMOVE OLD PATCH T-DERMAL SCH (08:43)
[2016-08-16] MEDS: DIVALPROEX SODIUM E.R. 500 MG TAB PO SCH (08:43)
[2016-08-16] MEDS: NICOTINE 21 MG/24 HR PATCH T-DERMAL SCH (08:43)
[2016-08-16] MEDS: metFORMIN HCL 500 MG TAB PO SCH (08:44)
[2016-08-16] MEDS: amLODIPine BESYLATE 5 MG TAB PO SCH (08:44)
[2016-08-16] MEDS ORDERED: DEPA500T3 PO (11:54)
[2016-08-16] MEDS ORDERED: OLAN10TA PO (11:54)
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
== END 2016-08-16 12:55 | disposition home or self-care (01) | DRG 885 ==
LOC: NEPD 13:42 → NEDA 08-09 16:34 → H270 08-09 17:40 → H260 08-15 12:03
PROVIDERS: ADMIT Psychiatry & Neurology Psychiatry; ATTEND Psychiatry & Neurology Psychiatry
DX: F25.0 Schizoaffective disorder, bipolar type (principal); R45.850 Homicidal ideations; I10 Essential (primary) hypertension; F41.9 Anxiety disorder, unspecified; F17.210 Nicotine dependence, cigarettes, uncomplicated; E11.9 Type 2 diabetes mellitus without complications; M19.012 Primary osteoarthritis, left shoulder; M19.011 Primary osteoarthritis, right shoulder; Z59.0 Homelessness
CPT/HCPCS: 80048; 80053; 80061; 80164; 81001; 82948; 83036; 84439; 84443; 87086; Q0163